=== PATIENT | male | born 1995 | race Two or more races ===

== ENCOUNTER 2016-11-20 20:37 | Emergency (ER) | payer SELFPAY | END 2016-11-20 23:50 | disposition home or self-care (01) | LOC: CED 20:37 → CFTX 20:37 | DX: T15.01XA Foreign body in cornea, right eye, initial encounter (principal); F17.210 Nicotine dependence, cigarettes, uncomplicated; X58.XXXA Exposure to other specified factors, initial encounter; Y92.009 Unspecified place in unspecified non-institutional (private) residence as the place of occurrence of the external cause | CPT/HCPCS: 99283 ==